=== PATIENT | male | born 1990 | race Hispanic/Latino ===

== ENCOUNTER 2018-12-16 16:32 | Emergency (ER) | payer MEDICAID, OTHER ==
[2018-12-16 16:48] VITALS: BP 138/74; PULSE 82; RESP 18; TEMP 98.3; O2SAT 99
--- NOTE | 2018-12-16 18:05 | ED PDOC ---
HPI: Skin/Bite Injury Time Seen by Provider: 12/16/18 17:05 Chief Complaint (Nursing): ENT Problem Chief Complaint (Provider): ENT Problem History Per: Patient History/Exam Limitations: no limitations Onset/Duration Of Symptoms: Days (x3) Current Symptoms Are (Timing): Still Present Additional Complaint(s): 28 year old male with no significant medical history, presents to the emergency department for an evaluation of a right, preauricular abscess that "needs to be drained" for the past 3 days. Patient reports similar symptoms in the past - last flare-up in 12/2017. Otherwise, he denies fever, chills, pain to affected ear, nausea, or vomiting. PCP: none provided Past Medical History Reviewed: Historical Data, Nursing Documentation, Vital Signs Vital Signs: Last Vital Signs Temp 98.3 F 12/16/18 16:46 Pulse 82 12/16/18 16:46 Resp 18 12/16/18 16:46 BP 138/74 12/16/18 16:46 Pulse Ox 99 12/16/18 16:46 - Medical History PMH: No Chronic Diseases - Surgical History Surgical History: No Surg Hx - Family History Family History: States: Unknown Family Hx - Home Medications Home Medications: Ambulatory Orders Medication Instructions Recorded Hydrocortisone 1% Oint [Cortizone 0.5 gm TP BID #1 tube 05/25/16 1% Oint] Cephalexin [Keflex] 500 mg PO Q6H #27 capsule 12/16/18 Ibuprofen [Motrin] 600 mg PO Q6H PRN #30 tab 12/16/18 Sulfamethoxazole/Trimethoprim 1 tab PO BID #9 tab 12/16/18 [Bactrim DS 800 mg-160 mg] - Allergies Allergies/Adverse Reactions: Allergies Allergy/AdvReac Type Severity Reaction Status Date / Time cat dander Allergy ITCHING Verified 12/16/18 16:43 clams Allergy ITCHING Verified 12/16/18 16:43 hazelnut Allergy ITCHING Verified 12/16/18 16:43 ragweed pollen Allergy ITCHING Verified 12/16/18 16:43 Review of Systems ROS Statement: Except As Marked, All Systems Reviewed And Found Negative Constitutional: Negative for: Fever, Chills ENT: Positive for: Other (right preauricular abscess). Negative for: Ear Pain (right-sided) Gastrointestinal: Negative for: Nausea, Vomiting Physical Exam - Reviewed Nursing Documentation Reviewed: Yes Vital Signs Reviewed: Yes - Physical Exam Appears: Positive for: No Acute Distress Head Exam: Positive for: ATRAUMATIC, NORMAL INSPECTION, NORMOCEPHALIC Skin: Positive for: Normal Color. Negative for: Rash ENT: Positive for: TM Is/Are (clear bilaterally. nonerythematous and nonbulging), Hearing Is (intact bilaterally), Other (right preauricular, fluctuant abscess with surrounding erythema and tenderness to palpation). Negative for: Pharyngeal Erythema - ECG O2 Sat by Pulse Oximetry: 99 (RA) Pulse Ox Interpretation: Normal Medical Decision Making Medical Decision Making: Time: 1734 Initial Plan: Rx for ABX and pain control given to patient. First dose provided in the ED. * Bactrim DS PO * Keflex PO * Motrin PO Time: 180 --Upon provider evaluation, patient is medically stable, reports improvement in symptoms, and requires no further treatment in the ED at this time. Findings and plan were discussed with patient who verbalizes understanding. Patient will be discharged home. Counseling was provided and all questions were answered regarding diagnosis. There is agreement to discharge plan. Return precautions discussed. Clinical Impression: preauricular cellulitis Scribe Attestation: Documented by Helga Abarca, acting as a scribe for Tanja Cochran. Provider Scribe Attestation: All medical record entries made by the Scribe were at my direction and personally dictated by me. I have reviewed the chart and agree that the record accurately reflects my personal performance of the history, physical exam, medical decision making, and the department course for this patient. I have also personally directed, reviewed, and agree with the discharge instructions and disposition. Disposition - Clinical Impression Clinical Impression: Preauricular cellulitis - Patient ED Disposition Is Patient to be Admitted: No Counseled Patient/Family Regarding: Diagnosis, Need For Followup, Rx Given - Disposition Disposition: Routine/Home Disposition Time: 18:05 Condition: IMPROVED Prescriptions: Cephalexin [Keflex] 500 mg PO Q6H #27 capsule Ibuprofen [Motrin] 600 mg PO Q6H PRN #30 tab PRN Reason: Pain, Moderate (4-7) Sulfamethoxazole/Trimethoprim [Bactrim DS 800 mg-160 mg] 1 tab PO BID #9 tab Instructions: Cellulitis (Skin Infection), Adult (DC) Print Language: [place] - POA Present On Arrival: None Procedures - Time-Out Type of Procedure: puncture and drainage of right preauricular abscess Site of Procedure: right preauricular Correct Patient (with visual ID + MR# on ID Band): Yes Correct Procedure: Yes Correct Site Marked: Yes Medication Reconciliation / Bloodwork / Allergies Checked: Yes RN Name: Tanja - Incision and Drainage Site: right preauricular Blade Size: 18 I & D Procedure: betadine prep Progress: Time: 1749 --Verbal consent obtained from patient. --Small puncture wound made with 18 gauge needle inserted to mid-abscess with significant serosanguinous, pus-like drainage including foul odor. --Patient tolerated procedure well without complications. --Post-procedure: patient reports improvement in symptoms.
[2018-12-16] MEDS ORDERED: Tmp-Smz 800 mg-160 mg DS Tab PO STA (18:06)
== END 2018-12-16 18:21 | disposition home or self-care (01) ==
LOC: H.ER 16:32
DX: H60.11 Cellulitis of right external ear (principal)